=== PATIENT | female | born 1980 | race Caucasian/White ===

== ENCOUNTER 2018-03-02 09:40 | Emergency (ER) | payer SELFPAY ==
[2018-03-02 09:48] VITALS: TEMP 98.3
--- NOTE | 2018-03-02 10:22 | ED.PDOC ---
History of Present Illness - General Chief Complaint: Chest Pain/SC Stated Complaint: Chest tightness, L arm tingling Time Seen by Provider: 03/02/18 10:03 Source: patient Exam Limitations: no limitations - History of Present Illness Initial Comments: Antonia Guerrero 37 y/o female stated that she had chest tightness since yesterday with pain and tingling left arm which had bee constant since yesterday;Also with dull ache on her neck.Has been seen at [facility] in June for chest pains symptoms and echo cardiogram and treadmill stress test done but unable to finish it offered thallium test and have cardiac cath patient declined got scared and offered her to have stent if test comes back positive.Denies SOB,n/v.Recently moved here from [place]. Timing/Duration: 24 hours Location: central Activities at Onset: none Prior Chest Pain/Cardiac Workup: echocardiography Worsening Factors: nothing Nitro Today/Relief: 0.4 mg x 1 Aspirin Treatment Today: 81 mg x 1 Associated Symptoms: denies symptoms Allergies/Adverse Reactions: Allergies Cephalexin [From Keflex] Allergy (Verified 03/02/18 09:45) Other Causes swelling Iodine Allergy (Verified 03/02/18 09:45) Other Causes swelling Review of Systems - Review of Systems Constitutional: States: no symptoms reported Respiratory: States: no symptoms reported Cardiology: States: see HPI Gastrointestinal/Abdominal: States: no symptoms reported Genitourinary: States: no symptoms reported Musculoskeletal: States: no symptoms reported Skin: States: no symptoms reported Neurological: States: no symptoms reported Endocrine: States: no symptoms reported Hematologic/Lymphatic: States: no symptoms reported Past Medical History (General) - Patient Medical History Hx Stroke: No Hx Asthma: Yes Hx Congestive Heart Failure: No Hx Thyroid Disease: Yes Hx Diabetes: No Hx MRSA: No Surgical History: other - btl - Vaccination History Hx Influenza Vaccination: No Hx Pneumococcal Vaccination: No - Social History Hx Tobacco Use: Yes Years Tobacco Use: 18 Cigarettes Packs Per Day: 10 Hx Alcohol Use: No Hx Substance Use Treatment: No Hx Depression: No Hx Physical Abuse: No Hx Emotional Abuse: No - Activities of Daily Living Grooming Ability: Standby Assistance Eating (Feeding) Ability: Independent Toileting Ability: Independent - Female History Patient is a Female of Child Bearing Age (10 -59 yrs old): Yes Patient : No Family Medical History - Family History Mother Hx Family Stroke: Yes - mom Hx Cardiac Disease: Yes Hx Family Cancer: Yes - thyroid,ovarian-mom Physical Exam - Physical Exam General Appearance: Alert, Comfortable, No apparent distress Eyes, Ears, Nose, Throat Exam: PERRL/EOMI, normal ENT inspection, TMs normal, pharynx normal Neck: non-tender, full range of motion, supple, normal inspection Respiratory: chest non-tender, lungs clear, normal breath sounds, no respiratory distress Cardiovascular/Chest: normal peripheral pulses, regular rate, rhythm, no murmur Peripheral Pulses: radial,right: 2+, radial,left: 2+ Gastrointestinal/Abdominal: normal bowel sounds, non tender, soft, no organomegaly Extremity: normal range of motion, non-tender, no pedal edema, no calf tenderness Neurologic: no motor/sensory deficits, alert, oriented x 3 Skin Exam: normal color, warm/dry Progress - Progress Progress: 03/02/18 14:02 Vital Signs - 8 hr 03/02/18 03/02/18 09:40 10:33 Temperature 98.3 F Pulse Rate [ 70 55 L Apical] Respiratory 20 20 Rate Blood Pressure 149/108 127/83 [Left Arm] O2 Sat by Pulse 99 98 Oximetry 03/02/18 14:04 Discuss test result with patient labs,ekg,cxr,serial cardiac enzymes not showing cardiac injury was advised to get primary Md for referral to [facility] for futher cardiac evaluation - Results/Orders Results/Orders: 03/02/18 09:45 EKG STAT 03/02/18 10:04 Telemetry .ONCE Pulse Ox Stat 03/02/18 10:30 EKG STAT 03/02/18 12:15 EKG STAT 03/02/18 21:00 Simvastatin [Zocor] 20 mg PO BEDTIME Laboratory Results - last 24 hr 03/02/18 03/02/18 03/02/18 10:04 10:27 10:27 WBC 9.9 RBC 5.03 Hgb 15.3 Hct 45.3 MCV 90.2 MCH 30.4 MCHC 33.7 RDW 13.5 Plt Count 247 MPV 9.4 Absolute Neuts (auto) 6.00 Absolute Lymphs (auto) 2.30 Absolute Monos (auto) 0.80 Absolute Eos (auto) 0.80 H Absolute Basos (auto) 0.00 Neutrophils % 60.5 Lymphocytes % 23.6 Monocytes % 7.7 Eosinophils % 7.9 H Basophils % 0.3 PT 9.7 INR 0.97 PTT (SP) 25.3 D-Dimer, Quantitative 0.40 Sodium 139 Potassium 4.1 Chloride 104 Carbon Dioxide 26 Anion Gap 13.1 BUN 10 Creatinine 0.72 BUN/Creatinine Ratio 13.9 Random Glucose 99 Serum Osmolality 276.6 Calcium 9.1 Magnesium 2.0 Total Bilirubin 0.4 Direct Bilirubin < 0.1 Indirect Bilirubin 0.3 AST 17 ALT 17 Alkaline Phosphatase 67 Creatine Kinase 62 CK-MB (CK-2) 1.1 CK-MB (CK-2) % Not Reportable Troponin I < 0.02 B-Natriuretic Peptide < 5.0 Serum Total Protein 7.1 Albumin 4.1 Urine Color Urine Appearance Urine pH Ur Specific [place] Urine Protein Urine Glucose (UA) Urine Ketones Urine Blood Urine Nitrite Urine Bilirubin Urine Urobilinogen Ur Leukocyte Esterase Urine RBC Urine WBC Ur Epithelial Cells Urine Bacteria Urine HCG, Qual Urine Opiates Screen Negative Urine Barbiturates Negative Ur Phencyclidine Scrn Negative U Amphetamin/Meth Scrn Negative U Benzodiazepines Scrn Negative U Cocaine Metab Screen Negative U Cannabinoids Screen Negative 03/02/18 03/02/18 03/02/18 10:48 11:00 12:34 WBC RBC Hgb Hct MCV MCH MCHC RDW Plt Count MPV Absolute Neuts (auto) Absolute Lymphs (auto) Absolute Monos (auto) Absolute Eos (auto) Absolute Basos (auto) Neutrophils % Lymphocytes % Monocytes % Eosinophils % Basophils % PT INR PTT (SP) D-Dimer, Quantitative Sodium Potassium Chloride Carbon Dioxide Anion Gap BUN Creatinine BUN/Creatinine Ratio Random Glucose Serum Osmolality Calcium Magnesium Total Bilirubin Direct Bilirubin Indirect Bilirubin AST ALT Alkaline Phosphatase Creatine Kinase CK-MB (CK-2) CK-MB (CK-2) % Troponin I < 0.02 B-Natriuretic Peptide Serum Total Protein Albumin Urine Color Yellow Urine Appearance Clear Urine pH 5.5 Ur Specific [place] <= 1.005 Urine Protein Negative Urine Glucose (UA) Negative Urine Ketones Negative Urine Blood Negative Urine Nitrite Negative Urine Bilirubin Negative Urine Urobilinogen 0.2 Ur Leukocyte Esterase Negative Urine RBC 0 Urine WBC 0 Ur Epithelial Cells 5-10 Urine Bacteria 0 Urine HCG, Qual Negative Urine Opiates Screen Urine Barbiturates Ur Phencyclidine Scrn U Amphetamin/Meth Scrn U Benzodiazepines Scrn U Cocaine Metab Screen U Cannabinoids Screen - EKG/XRAY/CT EKG: Sinus, no ST T wave changes Comments: HR 66 XRAY: chest - no acute cardiopulmonary disease - Additional EKG/XRAY/Consults EKG #2: Sinus, no ST T wave changes Comments: HR 62 Departure - Departure Clinical Impression: Chest pain Qualifiers: Chest pain type: unspecified Qualified Code(s): R07.9 - Chest pain, unspecified Time of Disposition: 14:07 Disposition: Discharge to Home or Self Care Condition: Fair Departure Forms: ED Discharge - Pt. Copy, Patient Portal Self Enrollment Instructions: DI for Chest Pain, DASH Diet, Quitting Smoking, Drugs to Help You Stop Using Tobacco Diet: low fat, low cholesterol, low salt diet Additional Instructions: RETURN TO ER NEEDED;Continue with ASA/NTG ;Need to sign up with primary Md [phone] SERGIO
[2018-03-02] MEDS ORDERED: LACTATED RINGERS 1,000 ML IVS ONE (10:27)
--- NOTE | 2018-03-02 10:46 | RAD ---
EXAM DESCRIPTION: Chest, x-ray 1 View CLINICAL HISTORY: Chest tightness COMPARISON: None FINDINGS: Cardiac silhouette is within normal limits. There is no focal parenchymal or pleural disease. There is no acute osseous process visualized. IMPRESSION: No evidence of acute cardiopulmonary disease. Electronically signed by: Nico Iglesias MD 03/02/2018 10:44 AM CDT
[2018-03-02] MEDS ORDERED: SIMVASTATIN 20 MG TAB ONE (10:52)
[2018-03-02 17:11] VITALS: BP 126/84; O2SAT 100
[2018-03-02] MEDS ORDERED: SIMVASTATIN 20 MG TAB PO SCH (21:00)
== END 2018-03-02 14:35 | disposition home or self-care (01) ==
LOC: ER 09:40
DX: R07.9 Chest pain, unspecified (principal); M54.2 Cervicalgia; R20.2 Paresthesia of skin; J45.909 Unspecified asthma, uncomplicated; E07.9 Disorder of thyroid, unspecified; F17.210 Nicotine dependence, cigarettes, uncomplicated; Z91.041 Radiographic dye allergy status; Z88.1 Allergy status to other antibiotic agents
CPT/HCPCS: 36415; 71045; 80048; 80076; 80307; 81001; 81025; 82550; 82553; 83880; 84484; 85025; 85379; 85610; 85730; 93005; J7120